=== PATIENT | female | born 1975 | race Caucasian/White ===

== ENCOUNTER → 2017-10-09 11:40 | Outpatient (CLI) | payer OTHER, SELFPAY ==
[2017-10-09 13:43] LABS: AST(SGOT) 24 U/L (15-37); Alanine Aminotransfer ALT/SGPT 21 U/L (13-56); Albumin, Serum 3.6 g/dL (3.2-5.0); Alkaline Phosphatase 63 U/L (45-117); Anion Gap 8 (5-15); BUN 8 mg/dL (7-18); BUN/Creat Ratio 9.4 RATIO (10-20); Chloride 103 mmol/L (98-107); Creatinine, Serum 0.86 mg/dL (0.55-1.02); EST Glomerular Filtration Rate 78 mL/min (>60); Est Glom Filt Rate - Afr Amer 94 mL/min (>60); Free T3 2.5 pg/mL (2.18-3.98); Globulin 3.7 g/dL (2.2-4.2); Glucose 80 mg/dL (74-106); Potassium 3.7 mmol/L (3.5-5.1); Protein, Total 7.3 g/dL (6.4-8.2); Sodium Level 139 mmol/L (136-145); T4 Free Direct 0.45 ng/dL (0.76-1.46)
== END ==
PROVIDERS: Family Provider Family Medicine; PCP Family Medicine; Visit Provider Internal Medicine Endocrinology, Diabetes & Metabolism
DX: E03.9 Hypothyroidism, unspecified (principal)
CPT/HCPCS: 36415; 80053; 84439; 84443; 84481

== ENCOUNTER → 2017-12-07 11:00 | Outpatient (CLI) | payer OTHER, SELFPAY ==
--- NOTE | 2017-12-07 11:01 | RAD_ITS ---
STUDY: X-RAY - ABDOMEN/PELVIS REASON FOR EXAM: Female, 42 years old. Renal stones TECHNIQUE: Supine views of the abdomen and pelvis were obtained. COMPARISON: CT abdomen and pelvis dated July 26, 2017 FINDINGS: The lung bases are unremarkable. There is an unremarkable bowel gas pattern. There is no demonstrated free abdominal air. There is no demonstrated abnormality of the major organs. The soft tissues are unremarkable. The osseous structures are unremarkable. RAD/Abdomen Single View IMPRESSION: No acute abnormalities are seen in the abdomen or pelvis. No stones are evident over the renal shadows or along the expected course of the ureters. Electronically Signed: Marylou Jo MD at 18:05 EDT Tel Direct: [phone], Service support ,
== END ==
PROVIDERS: Family Provider Family Medicine; PCP Family Medicine; Visit Provider Nurse Practitioner Adult Health
DX: N20.0 Calculus of kidney (principal)
CPT/HCPCS: 74018

== ENCOUNTER → 2018-02-16 12:50 | Outpatient (CLI) | payer OTHER, SELFPAY ==
[2018-02-16 13:48] LABS: T4 Free Direct 0.61 ng/dL (0.76-1.46)
[2018-02-16 13:49] LABS: Free T3 4.2 pg/mL (2.18-3.98)
== END ==
PROVIDERS: Family Provider Family Medicine; PCP Family Medicine; Visit Provider Nurse Practitioner
DX: E03.9 Hypothyroidism, unspecified (principal)
CPT/HCPCS: 36415; 84439; 84443; 84481

== ENCOUNTER → 2018-03-13 16:53 | Outpatient (CLI) | payer OTHER, SELFPAY ==
--- NOTE | 2018-03-13 16:58 | RAD_ITS ---
STUDY: X-RAY - CERVICAL SPINE REASON FOR EXAM: Female, 42 years old. Neck pain. Recent cervical spine surgery.. TECHNIQUE: 5 view(s) of the cervical spine were obtained. COMPARISON: None FINDINGS: Normal anterior atlantoaxial articulation. Normal odontoid process. There has been surgical fusion between C5-C7. Satisfactory appearance of the anterior buttress plate and disc spacers. Normal alignment. Normal curvature. Normal neuroforamina bilaterally. Grossly normal soft tissues. RAD/Cerv Spine 4 or 5 Views IMPRESSION: No acute abnormality. Grossly satisfactory postsurgical changes. Electronically Signed: Jh Virk MD at 0:00 EDT , Service support ,
== END ==
PROVIDERS: Family Provider Family Medicine; PCP Family Medicine; Visit Provider Family Medicine
DX: M50.90 Cervical disc disorder, unspecified, unspecified cervical region (principal)
CPT/HCPCS: 72050

== ENCOUNTER → 2018-05-17 17:07 | Outpatient (CLI) | payer OTHER, SELFPAY | PROVIDERS: Family Provider Family Medicine; PCP Family Medicine; Referring Provider Urology; Visit Provider Urology | DX: R10.9 Unspecified abdominal pain (principal) | CPT/HCPCS: 87086; 87088 ==

== ENCOUNTER → 2018-11-29 | Outpatient (CLI) | payer OTHER, SELFPAY ==
--- NOTE | 2018-11-29 16:45 | US_ITS ---
STUDY: RENAL ULTRASOUND - COMPLETE REASON FOR EXAM: Female, 43 years old. Right flank pain and frequent urination TECHNIQUE: Ultrasound evaluation of the kidneys was performed with real-time and static lewis-scale imaging. COMPARISON: October 06, 2016 FINDINGS: RIGHT KIDNEY: Normal location of the right kidney, which is atrophic The right kidney measures 9 x 5.5 x 3.1 cm. There is a thin cortex of the right kidney. The renal cortex measures 0.8 cm. There is no right renal mass or cyst. There are no right renal calculi. There is no right hydronephrosis. DISTAL RIGHT URETER: There is non-visualization of the distal right ureter. There is no demonstrated right ureterovesical junction calculus. There is a visualized right ureteral jet. LEFT KIDNEY: Normal location of the left kidney, which is normal in size. The left kidney measures 10.2 x 5.2 x 5.3 cm. There is a normal cortex of the left kidney. The renal cortex measures 1.8 cm. There is a cyst measuring 1.8 x 1.5 x 1.5 cm. There is a nonobstructing calculus measuring 4 x 4 mm There is no left hydronephrosis. DISTAL LEFT URETER: There is non-visualization of the distal left ureter. There is no demonstrated left ureterovesical junction calculus. There is a visualized left ureteral jet. BLADDER: The distended urinary bladder has a volume of 29.84 ml. There is a normal wall thickness of the distended urinary bladder. There is no demonstrated mass within the urinary bladder. There are no demonstrated bladder calculi. US/Kidney and Bladder IMPRESSION: No evidence for renal obstruction Small cyst in the left kidney. Tiny nonobstructing left renal calculus. Electronically Signed: Beto Harry MD at 21:29 EDT , Service support ,
== END | disposition home or self-care (01) ==
LOC: US 16:44
PROVIDERS: Family Provider Family Medicine; PCP Family Medicine; Referring Provider Nurse Practitioner Adult Health; Visit Provider Nurse Practitioner Adult Health
DX: R10.9 Unspecified abdominal pain (principal); R31.29 Other microscopic hematuria
CPT/HCPCS: 76770

== ENCOUNTER → 2018-12-12 16:40 | Outpatient (CLI) | payer OTHER, SELFPAY ==
[2018-12-12 17:22] LABS: Hematocrit 40.9 % (37-47); Mean Corp Hgb Conc 34.2 g/gl (32-36); Mean Corpuscular Volume 87.6 fL (81-99); Mean Platelet Vol. 11.5 fl (6.2-12.0); Platelet Count 160 K/mm3 (150-450); RBC Distribution Width CV 12.5 % (11.6-14.6); RBC Distribution Width SD 39.2 fl (35.1-43.9); Red Blood Count 4.67 M/mm3 (4.2-5.4); White Blood Count 7.3 K/mm3 (4.4-11.0)
[2018-12-12 17:24] LABS: Scan Indicated on CBC? Y/N NO
[2018-12-12 17:59] LABS: Albumin, Serum 3.6 g/dL (3.2-5.0); BUN 8 mg/dL (7-18); BUN/Creat Ratio 9.1 RATIO (10-20); Calcium,Total 8.7 mg/dL (8.5-10.1); Chloride 109 mmol/L (98-107); Creatinine, Serum 0.88 mg/dL (0.55-1.02); EST Glomerular Filtration Rate 75 mL/min (>60); Est Glom Filt Rate - Afr Amer 90 mL/min (>60); Glucose 99 mg/dL (74-106); Magnesium 1.9 mg/dL (1.6-2.6); Potassium 3.6 mmol/L (3.5-5.1); Sodium Level 138 mmol/L (136-145)
[2018-12-12 18:11] LABS: PTHIN 38.7 pg/mL (18.4-80.1); Vitamin D,25 Hydroxy 21.5 ng/mL (29.95-100.01)
[2018-12-12 18:12] LABS: Microalbumin,Random Urine 14.9 mg/L (NO RANGE EST.); Microalbumin:Creatinine Ratio 5.7 mg/g CRE (<30 mg/g CRE)
== END ==
PROVIDERS: Family Provider Family Medicine; PCP Family Medicine; Referring Provider Internal Medicine Nephrology; Visit Provider Internal Medicine Nephrology
DX: N17.9 Acute kidney failure, unspecified (principal); D50.9 Iron deficiency anemia, unspecified
CPT/HCPCS: 36415; 80069; 82043; 82306; 82570; 83735; 83970; 85027

== ENCOUNTER → 2019-01-14 06:29 | Outpatient (CLI) | payer OTHER, SELFPAY ==
[2019-01-14 07:41] LABS: Hematocrit 40.7 % (37-47); Hemoglobin 13.9 g/dl (12.0-15.0); Mean Corp Hgb Conc 34.2 g/gl (32-36); Mean Corpuscular Hgb 30.5 pg (27.0-32.0); Mean Corpuscular Volume 89.3 fL (81-99); Mean Platelet Vol. 11.6 fl (6.2-12.0); Platelet Count 153 K/mm3 (150-450); RBC Distribution Width CV 12.8 % (11.6-14.6); RBC Distribution Width SD 41.1 fl (35.1-43.9); Red Blood Count 4.56 M/mm3 (4.2-5.4); White Blood Count 5.9 K/mm3 (4.4-11.0)
[2019-01-14 07:44] LABS: Scan Indicated on CBC? Y/N NO
[2019-01-14 07:53] LABS: Microalbumin,Random Urine 18.1 mg/L (NO RANGE EST.); Microalbumin:Creatinine Ratio 5.1 mg/g CRE (<30 mg/g CRE)
[2019-01-14 07:58] LABS: Albumin, Serum 3.4 g/dL (3.2-5.0); BUN 14 mg/dL (7-18); BUN/Creat Ratio 16.9 RATIO (10-20); Calcium,Total 8.5 mg/dL (8.5-10.1); Chloride 109 mmol/L (98-107); Creatinine, Serum 0.83 mg/dL (0.55-1.02); EST Glomerular Filtration Rate 80 mL/min (>60); Est Glom Filt Rate - Afr Amer 97 mL/min (>60); Glucose 92 mg/dL (74-106); Phosphorus 3.1 mg/dL (2.5-4.9); Potassium 3.8 mmol/L (3.5-5.1); Sodium Level 143 mmol/L (136-145)
[2019-01-14 09:31] LABS: Vitamin D,25 Hydroxy 34.3 ng/mL (29.95-100.01)
[2019-01-14 09:50] LABS: PTHIN 56.3 pg/mL (18.4-80.1)
== END ==
PROVIDERS: Family Provider Family Medicine; PCP Family Medicine; Referring Provider Internal Medicine Nephrology; Visit Provider Internal Medicine Nephrology
DX: N17.9 Acute kidney failure, unspecified (principal); D50.9 Iron deficiency anemia, unspecified
CPT/HCPCS: 36415; 80069; 82043; 82306; 82570; 83735; 83970; 85027

== ENCOUNTER → 2019-02-26 16:52 | Outpatient (CLI) | payer OTHER, SELFPAY ==
[2019-02-26 18:11] LABS: T4 Free Direct 1.11 ng/dL (0.76-1.46); Thyroid Stim Hormone (TSH) 4.42 uIU/mL (0.358-3.74)
== END ==
PROVIDERS: Family Provider Family Medicine; PCP Family Medicine; Visit Provider Family Medicine
DX: E03.9 Hypothyroidism, unspecified (principal)
CPT/HCPCS: 36415; 84439; 84443

== ENCOUNTER → 2019-03-12 17:55 | Outpatient (CLI) | payer OTHER, SELFPAY ==
[2019-03-12 19:30] LABS: M R Staph aureus DNA By PCR Negative (Negative); Probe Check PASS; Specimen Processing Control PASS; Staph aureus DNA By PCR NEGATIVE (Negative)
== END ==
PROVIDERS: Family Provider Family Medicine; PCP Family Medicine; Referring Provider Podiatrist; Visit Provider Podiatrist
DX: L60.9 Nail disorder, unspecified (principal)
CPT/HCPCS: 87070; 87075; 87077; 87186; 87205; 87640

== ENCOUNTER → 2019-04-19 16:22 | Outpatient (CLI) | payer OTHER, SELFPAY ==
[2019-04-19 17:36] LABS: Thyroid Stim Hormone (TSH) 0.41 uIU/mL (0.358-3.74)
== END ==
LOC: LAB.FUTURE 10-22 00:31 → BFHLAB 04-08 08:22
PROVIDERS: Family Provider Family Medicine; PCP Family Medicine; Visit Provider Family Medicine
DX: E03.9 Hypothyroidism, unspecified (principal)
CPT/HCPCS: 36415; 84443

== ENCOUNTER → 2019-05-27 12:06 | Outpatient (CLI) | payer OTHER, SELFPAY ==
--- NOTE | 2019-05-27 11:45 | CYSPIN_PTH ---
PATIENT: PATRIC ROTH LOC: CT U#:[id number] AGE/SX: 50/F ROOM: RE05/27/[address]: MISSY Craft : 1975 BED: DIS: SPEC #: [id number] RECD: 05/27/19 17:37 STATUS: ZOHAIB RESteve #: [id number] MORGAN: 05/27/19 11:[address]: Riya Yao NP DEPT: CYTOLOGY RECD BY: Mauricio Brown ENTERED: 05/28/19 09:49 SP TYPE: CYSPIN FL OTHR DR: Dr. Phil Chu MD Tissues: Urine Procedures: Pap Stain (control) Special Stain Group II Cytospin Fluid HEADER OPERATION: Not noted PRE-OP DIAGNOSIS: Hematuria TISSUE SUBMITTED: Urine for cytology DIAGNOSIS CYTOLOGY Urine for cytology (cytospin): Negative for malignant cells. See comment. HENRY:roseline 05/29/19 COMMENT The specimen predominantly consists of squamous epithelial cells. Numerous organisms consistent with bacteria are also present. Clinical correlation and appropriate follow up are necessary. CYTOLOGY STUDY Slides are reviewed. CYTOLOGY GROSS Received is 20 ml of gold cloudy fluid labeled with the patient's name and and designated per the requisition as urine. Submitted for cytology preparation. / roseline 05/28/19 TC:5 [facility]: [id number]
--- NOTE | 2019-05-27 12:11 | CT_ITS ---
STUDY: CT ABDOMEN AND PELVIS WITHOUT CONTRAST REASON FOR EXAM: Female, 43 years old. 2 day history of gross hematuria and right flank pain. RADIATION DOSAGE (If Supplied By Facility): CTDIvol = ( 8.99 ) mGy, DLP = ( 396.11 ) mGycm TECHNIQUE: Transaxial images were obtained from the dome of the diaphragm to the symphysis pubis without oral contrast, and without intravenous contrast. Sagittal and coronal images were reconstructed. Individualized dose optimization techniques were used for this CT. COMPARISON: Comparison is made with prior study dated July 26, 2017. FINDINGS: The visualized lung bases are unremarkable. The visualized portions of the heart are within normal limits. Normal liver. Normal gallbladder and extrahepatic biliary system. Normal spleen. Normal pancreas. Normal bilateral adrenal glands. Normal right kidney. Stable 1.4 cm cyst in the anterior midportion of the left kidney. There is a small hiatal hernia. Normal small intestine. Normal colon. There is non-visualization of the appendix. Normal abdominal aorta. Normal inferior vena cava. Normal retroperitoneum. Normal urinary bladder. There is absence of the uterus consistent with a prior hysterectomy. Normal abdominal wall. Stable degenerative changes at the L5-S1 level. CT/Abdomen/Pelvis without Cont IMPRESSION: Status post hysterectomy. Stable left renal cyst. Electronically Signed: Gray Horn, at 13:21 EDT , Service support ,
[2019-05-27 17:56] LABS: Cytology, Body Fluid / CSF SEE PATHOLOGY REPORT
== END ==
PROVIDERS: Family Provider Family Medicine; PCP Family Medicine; Referring Provider Nurse Practitioner Adult Health; Visit Provider Nurse Practitioner Adult Health
DX: R31.0 Gross hematuria (principal); R10.9 Unspecified abdominal pain; N20.0 Calculus of kidney
CPT/HCPCS: 74176; 87086; 87088; 88108; 88313

== ENCOUNTER → 2019-06-12 15:47 | Outpatient (CLI) | payer OTHER, SELFPAY ==
--- NOTE | 2019-06-12 15:51 | CT_ITS ---
STUDY: CT ABDOMEN AND PELVIS WITH AND WITHOUT CONTRAST REASON FOR EXAM: Female, 44 years old. Hematuria and flank pain which has now resolved. RADIATION DOSAGE (If Supplied By Facility): CTDIvol = ( ) mGy, DLP = ( ) mGycm TECHNIQUE: Transaxial images were obtained from the dome of the diaphragm to the symphysis pubis without oral contrast. IV Isovue 370 100mL was administered. Sagittal and coronal images were reconstructed. Individualized dose optimization techniques were used for this CT. COMPARISON: May 27, 2019. FINDINGS: The visualized lung bases are unremarkable. The visualized portions of the heart are within normal limits. Normal liver. Normal gallbladder and extrahepatic biliary system. Normal spleen. Normal pancreas. Normal bilateral adrenal glands. Normal right kidney. Right ureter. Stable cyst lower pole in otherwise normal left kidney. Normal left ureter. Normal visualized stomach. Normal small intestine. The cecum lies in the posterior cul-de-sac. The colon is otherwise unremarkable. The appendix is not visualized. Normal abdominal aorta. Normal inferior vena cava. Normal retroperitoneum. Normal urinary bladder. Without prominence of the vaginal cuff. No pelvic lymphadenopathy or mass. No free air is seen within the peritoneal cavity. There is minimal free fluid in the posterior cul-de-sac. Umbilical hernia of omental fat. There are diffuse degenerative changes of the visualized lumbar spine. CT/CT Abd/Pelvis W/WO Contrast IMPRESSION: 1. Minimal free fluid in the posterior cul-de-sac. 2. No other major interval change when compared to the previous study. Electronically Signed: Jose Miguel Martinez DO at 19:57 EDT Tel [phone], Service support ,
== END ==
PROVIDERS: Family Provider Family Medicine; PCP Family Medicine; Referring Provider Urology; Visit Provider Urology
DX: R31.9 Hematuria, unspecified (principal); R10.9 Unspecified abdominal pain
CPT/HCPCS: 74178; Q9967

== ENCOUNTER → 2019-07-22 07:25 | Outpatient (CLI) | payer OTHER, SELFPAY ==
[2019-07-22 08:35] LABS: 24 Hour Urine Protein 68.8 mg/24HR (<150 MG/24HR); 24HR. UA Prot. Total Volume 850 mL; Urine Protein (24 Hour) 8.1 mg/dL (<11.9)
[2019-07-22 08:45] LABS: Hematocrit 40.7 % (37-47); Hemoglobin 14.2 g/dL (12.0-15.0); Mean Corp Hgb Conc 34.9 g/dL (32-36); Mean Corpuscular Hgb 30.9 pg (27.0-32.0); Mean Corpuscular Volume 88.5 fL (81-99); Platelet Count 165 K/mm3 (150-450); RBC Distribution Width CV 12.1 % (11.6-14.6)
[2019-07-22 09:06] LABS: Albumin, Serum 3.5 g/dL (3.2-5.0); BUN 11 mg/dL (7-18); BUN/Creat Ratio 11.5 RATIO (10-20); Calcium,Total 8.9 mg/dL (8.5-10.1); Chloride 110 mmol/L (98-107); Creatinine, Serum 0.95 mg/dL (0.55-1.02); EST Glomerular Filtration Rate 68 mL/min (>60); Est Glom Filt Rate - Afr Amer 82 mL/min (>60); Glucose 94 mg/dL (74-106); Phosphorus 2.8 mg/dL (2.5-4.9); Potassium 3.8 mmol/L (3.5-5.1); Sodium Level 141 mmol/L (136-145)
[2019-07-22 09:27] LABS: Creat.Clear Total Volume 850 mL; Creatinine Clearance 102 ml/min (100-200); EST Glomerular Filtration Rate 68 mL/min (>60); Est Glom Filt Rate - Afr Amer 83 mL/min (>60)
[2019-07-22 09:37] LABS: Vitamin D,25 Hydroxy 31.3 ng/mL (29.95-100.01)
== END ==
PROVIDERS: Family Provider Family Medicine; PCP Family Medicine; Referring Provider Internal Medicine Nephrology; Visit Provider Internal Medicine Nephrology
DX: N20.0 Calculus of kidney (principal); R31.9 Hematuria, unspecified; E55.9 Vitamin D deficiency, unspecified
CPT/HCPCS: 36415; 80069; 81050; 82306; 82575; 83970; 84156; 85027

== ENCOUNTER → 2019-10-17 15:51 | Outpatient (CLI) | payer OTHER, SELFPAY | PROVIDERS: PCP Family Medicine; Visit Provider Family Medicine | DX: R31.29 Other microscopic hematuria (principal) | CPT/HCPCS: 87086; 87088 ==

== ENCOUNTER → 2020-02-21 17:42 | Outpatient (CLI) | payer OTHER, SELFPAY | PROVIDERS: PCP Family Medicine; Visit Provider Family Medicine | DX: Z20.828 Contact with and (suspected) exposure to other viral communicable diseases (principal) | CPT/HCPCS: 87635; G2023; U0003 ==

== ENCOUNTER → 2020-04-13 15:17 | Outpatient (CLI) | payer OTHER, SELFPAY ==
[2020-04-13 17:40] LABS: T4 Free Direct 1.42 ng/dL (0.76-1.46); Thyroid Stim Hormone (TSH) 0.14 uIU/mL (0.358-3.74)
== END ==
PROVIDERS: PCP Family Medicine; Visit Provider Family Medicine
DX: E03.9 Hypothyroidism, unspecified (principal)
CPT/HCPCS: 36415; 84439; 84443

== ENCOUNTER → 2020-06-01 14:48 | Outpatient (CLI) | payer OTHER, SELFPAY ==
[2020-06-01 15:59] LABS: Anion Gap 5 (5-15); BUN 13 mg/dL (7-18); BUN/Creat Ratio 12.7 RATIO (10-20); Calcium,Total 8.8 mg/dL (8.5-10.1); Chloride 109 mmol/L (98-107); Cholesterol 173 mg/dL (200); Creatinine, Serum 1.02 mg/dL (0.55-1.02); EST Glomerular Filtration Rate 63 mL/min (>60); Est Glom Filt Rate - Afr Amer 76 mL/min (>60); Glucose 92 mg/dL (74-106); High Density Lipoprotein 49 mg/dL; Potassium 3.8 mmol/L (3.5-5.1); Sodium Level 142 mmol/L (136-145); T4 Free Direct 1.25 ng/dL (0.76-1.46); Thyroid Stim Hormone (TSH) 0.54 uIU/mL (0.358-3.74); Triglycerides 123 mg/dL; Very Low Density Lipoprotein 25 mg/dL (5-40)
== END ==
LOC: BFHLAB 12-03 00:16
PROVIDERS: PCP Family Medicine; Visit Provider Family Medicine
DX: E03.9 Hypothyroidism, unspecified (principal)
CPT/HCPCS: 36415; 80048; 80061; 84439; 84443

== ENCOUNTER → 2020-10-12 | Outpatient (CLI) | payer OTHER, SELFPAY ==
[2020-10-12 17:39] LABS: Anion Gap 5 (5-15); BUN 12 mg/dL (7-18); BUN/Creat Ratio 14.4 RATIO (10-20); Calcium,Total 8.5 mg/dL (8.5-10.1); Chloride 106 mmol/L (98-107); Creatinine, Serum 0.83 mg/dL (0.55-1.02); EST Glomerular Filtration Rate 79 mL/min (>60); Est Glom Filt Rate - Afr Amer 95 mL/min (>60); Glucose 89 mg/dL (74-106); Potassium 3.7 mmol/L (3.5-5.1); Sodium Level 140 mmol/L (136-145); Thyroid Stim Hormone (TSH) 0.51 uIU/mL (0.358-3.74)
== END | disposition home or self-care (01) ==
LOC: BFHLAB 16:18
PROVIDERS: PCP Family Medicine; Visit Provider Family Medicine
DX: E03.9 Hypothyroidism, unspecified (principal); R35.8 Other polyuria
CPT/HCPCS: 36415; 80048; 84443

== ENCOUNTER → 2021-04-01 17:47 | Outpatient (CLI) | payer OTHER, SELFPAY | PROVIDERS: PCP Family Medicine; Visit Provider Family Medicine | DX: Z20.828 Contact with and (suspected) exposure to other viral communicable diseases (principal) | CPT/HCPCS: 87635; U0005; U0003 ==

== ENCOUNTER 2021-07-05 09:45 | Outpatient (RCR) | payer OTHER, SELFPAY ==
--- NOTE | 2021-05-04 10:12 | MASS.EVAL_ITS ---
Massage Therapy Evaluation: Initial Evaluation Date: 05/04/2021 SUBJECTIVE: Marlene is a 45 year old female who was referred to the [facility] for a massotherapy evaluation by Dr. Gonzales with the diagnosis of migraines. She presents today with the symptoms of pain, stiffness and tension in the neck, head, and mid back. Marlene reports having a past medical history of chronic neck pain that causes migraines. Marlene reports that each month she has a different amount of migraines. She reports of trying different types of medication to decrease the amount of migraines. OBJECTIVE: Upon observation Marlene has poor posture with her head and shoulders forward from the neutral position in sitting and standing. After examination and palpation, I found Marlene to have high muscle tension with tenderness and myofascial restrictions in her sub occipitals, levator scapulae, trapezius, rhomboids, and scalenes. The first treatment consisted of a one hour massage to her upper body with myofascial release, muscle stripping, trigger point compression techniques, and cervical manual traction. ASSESSMENT: I feel that Marlene is a good candidate for massotherapy at this time. She had a favorable response to the first treatment with reduction in her muscle aches, pain, and tension. She also had improvement in her cervical flexibility and low back flexibility. PLAN: The plan of care was reviewed with the patient. The patient is to be seen on an as needed basis with the recommendation of once every month for a one hour treatment.
--- NOTE | 2021-08-03 12:48 | MASS.DISCH ---
Massage Therapy Discharge Summary: 08/03/21 Marlene was seen for a massotherapy evaluation on 05/04/21, with a diagnosis of migraines. The patient was treated with two sessions of massage, the patient stated that it did give her moderate release. At this time I am discharging the patient from our care at [facility] facility.
== END 2021-07-05 19:00 | disposition home or self-care (01) ==
LOC: MASS 09:45
PROVIDERS: PCP Family Medicine; Visit Provider Nurse Practitioner Family
DX: G54.2 Cervical root disorders, not elsewhere classified (principal); G43.909 Migraine, unspecified, not intractable, without status migrainosus
CPT/HCPCS: 97124

== ENCOUNTER → 2021-07-06 16:40 | Outpatient (CLI) | payer OTHER, SELFPAY ==
[2021-07-06 17:46] LABS: NATERA MAILED SPECIMEN
== END ==
PROVIDERS: PCP Family Medicine; Visit Provider Obstetrics & Gynecology
DX: Z13.9 Encounter for screening, unspecified (principal); Z80.0 Family history of malignant neoplasm of digestive organs
CPT/HCPCS: 36415

== ENCOUNTER → 2021-07-21 07:15 | Outpatient (CLI) | payer OTHER, SELFPAY ==
--- NOTE | 2021-07-21 07:18 | CT_ITS ---
STUDY: CT ABDOMEN AND PELVIS WITHOUT CONTRAST REASON FOR EXAM: Female, 46 years old. Abdominal PAIN RADIATION DOSAGE (If Supplied By Facility): CTDIvol = ( 6.42 ) mGy, DLP = ( 299.69 ) mGycm TECHNIQUE: Transaxial images were obtained from the dome of the diaphragm to the symphysis pubis without oral contrast, and without intravenous contrast. Sagittal and coronal images were reconstructed. Individualized dose optimization techniques were used for this CT. COMPARISON: 05/27/2019 FINDINGS: The visualized lung bases are unremarkable. The visualized portions of the heart are within normal limits. The lack of intravenous contrast limits evaluation of solid visceral organs. Normal liver. Normal gallbladder and extrahepatic biliary system. Normal spleen. Normal pancreas. Normal bilateral adrenal glands. Normal right kidney. There is a left renal cyst. Normal visualized stomach. Normal small intestine. Normal colon. There is non-visualization of the appendix. Normal abdominal aorta. Normal inferior vena cava. Normal retroperitoneum. Normal urinary bladder. There is a small umbilical hernia containing fat. There are diffuse degenerative changes of the visualized lumbar spine. CT/Abdomen/Pelvis without Cont IMPRESSION: No acute intra-abdominal process. Electronically Signed: Brii Alvarado MD at 12:05 EST Tel , Service support ,
== END ==
PROVIDERS: PCP Family Medicine; Referring Provider Urology; Visit Provider Urology
DX: R31.21 Asymptomatic microscopic hematuria (principal); R10.84 Generalized abdominal pain
CPT/HCPCS: 74176

== ENCOUNTER 2021-10-11 13:00 | Outpatient (RCR) | payer OTHER, SELFPAY | END 2021-10-11 23:59 | LOC: NS 13:00 | PROVIDERS: PCP Family Medicine; Referring Provider Family Medicine; Visit Provider Family Medicine | DX: Z71.3 Dietary counseling and surveillance (principal); E66.3 Overweight; Z68.27 Body mass index [BMI] 27.0-27.9, adult | CPT/HCPCS: 97802; 97803 ==

== ENCOUNTER 2021-10-25 09:04 | Outpatient (RCR) | payer OTHER, SELFPAY | END 2021-11-11 23:59 | LOC: NS 09:04 | PROVIDERS: PCP Family Medicine; Referring Provider Family Medicine; Visit Provider Family Medicine | DX: Z71.3 Dietary counseling and surveillance (principal); E66.3 Overweight; Z68.27 Body mass index [BMI] 27.0-27.9, adult | CPT/HCPCS: 97803 ==

== ENCOUNTER 2021-11-04 12:28 | Outpatient (CLI) | payer OTHER, SELFPAY ==
--- NOTE | 2021-11-04 12:30 | RAD_ITS ---
STUDY: [id number]/PELVIS--2 VIEWS OF 1239 HOURS ON 11/04/2021 REASON FOR EXAM: 46-year-old female. Evaluate for possible renal calculus. TECHNIQUE: 2 AP upright views of the abdomen and pelvis were obtained. COMPARISON: None. FINDINGS: There is no abdominal organomegaly. There is no abnormal calcifications or collections of air. There is no evidence of calcification or calculi in the regions of the kidneys, ureters, or bladder. There is mild constipation. The osseous structures are normal. The bases of the lungs have a normal appearance. RAD/Abdomen Single View IMPRESSION: 1. No abnormal calcification or calculi in the region of the kidneys, ureters, bladder. 2. No abnormal intra-abdominal calcifications or collections of air. 3. No organomegaly. 4. Mild constipation. 5. Normal osseous structures. Electronically Signed: Shreyas Laboy MD at 22:19 EDT ,
== END 2021-11-04 23:59 | disposition home or self-care (01) ==
LOC: RAD 12:30
PROVIDERS: PCP Family Medicine; Referring Provider Urology; Visit Provider Urology
DX: N20.0 Calculus of kidney (principal)
CPT/HCPCS: 74018

== ENCOUNTER 2021-11-22 10:34 | Outpatient (CLI) | payer OTHER, SELFPAY ==
--- NOTE | 2021-11-22 10:35 | BI_ITS ---
MAMMOGRAPHY - BILATERAL SCREENING REASON FOR EXAM: Female, 46 years old. Routine annual screening examination. PERTINENT HISTORY: Non-contributory. TECHNIQUE: Digital bilateral breast lion (3D mammographic acquisition) in the CC and MLO projections. 2-D mediolateral oblique (MLO) and craniocaudad (CC) views of both breasts were obtained. CAD: Full Field Digital Mammography with Computer Added Detection was performed. COMPARISON: None. Baseline examination. FINDINGS: Breast Composition: The breasts are extremely dense, which lowers the sensitivity of mammography. There are no dominant masses or suspicious calcifications. No other significant abnormalities are identified. BI/SCRN MAMM (CAD)W/LION BILAT IMPRESSION: Negative screening mammogram. Yearly followup mammogram recommended. (A) ASSESSMENT CATEGORY: BIRADS Category 1: Negative. A letter regarding these results will be sent to the patient by the facility within 30 days. Approximately 10% of breast cancers are not detected by mammography. A normal mammogram should not delay biopsy of a clinically suspicious abnormality. [id number] Electronically Signed: Gray Horn MD at 12:34 EDT ,
== END 2021-11-22 23:59 | disposition home or self-care (01) ==
LOC: OPBI 10:34
PROVIDERS: PCP Family Medicine; Visit Provider Obstetrics & Gynecology
DX: Z12.31 Encounter for screening mammogram for malignant neoplasm of breast (principal)
CPT/HCPCS: 77063; 77067

== ENCOUNTER 2021-12-06 14:37 | Outpatient (RCR) | payer OTHER, SELFPAY | END 2021-12-11 23:59 | LOC: NS 14:37 | PROVIDERS: PCP Family Medicine; Referring Provider Family Medicine; Visit Provider Family Medicine | DX: Z71.3 Dietary counseling and surveillance (principal); E66.3 Overweight; Z68.27 Body mass index [BMI] 27.0-27.9, adult | CPT/HCPCS: 97803 ==

== ENCOUNTER 2021-12-27 07:56 | Outpatient (RCR) | payer OTHER, SELFPAY | END 2022-01-11 23:59 | LOC: NS 07:56 | PROVIDERS: PCP Family Medicine; Referring Provider Family Medicine; Visit Provider Family Medicine | DX: Z71.3 Dietary counseling and surveillance (principal); E66.3 Overweight; Z68.27 Body mass index [BMI] 27.0-27.9, adult | CPT/HCPCS: 97803 ==

== ENCOUNTER 2022-02-01 09:47 | Outpatient (RCR) | payer OTHER, SELFPAY | END 2022-02-10 23:59 | LOC: NS 09:47 | PROVIDERS: PCP Family Medicine; Referring Provider Family Medicine; Visit Provider Family Medicine | DX: Z71.3 Dietary counseling and surveillance (principal); E66.3 Overweight; Z68.27 Body mass index [BMI] 27.0-27.9, adult | CPT/HCPCS: 97803 ==

== ENCOUNTER → 2022-05-13 | Outpatient (CLI) | payer OTHER, SELFPAY ==
[2022-05-13 17:02] LABS: Hematocrit 40.7 % (37-47); Mean Corp Hgb Conc 34.4 g/dL (32-36); Mean Corpuscular Hgb 30.4 pg (27.0-32.0); Mean Corpuscular Volume 88.5 fL (81-99); Platelet Count 212 K/mm3 (150-450); RBC Distribution Width CV 12.3 % (11.6-14.6); RBC Distribution Width SD 39.7 fl (35.1-43.9); White Blood Count 8.4 K/mm3 (4.4-11.0)
[2022-05-13 17:21] LABS: PTHIN 54.1 pg/mL (18.4-80.1)
[2022-05-13 17:27] LABS: Albumin, Serum 3.4 g/dL (3.2-5.0); BUN 14 mg/dL (7-18); BUN/Creat Ratio 16.3 RATIO (10-20); Calcium,Total 9.3 mg/dL (8.5-10.1); Chloride 108 mmol/L (98-107); Creatinine, Serum 0.86 mg/dL (0.55-1.02); EST Glomerular Filtration Rate 76 mL/min (>60); Est Glom Filt Rate - Afr Amer 92 mL/min (>60); Glucose 88 mg/dL (74-106); Phosphorus 3.2 mg/dL (2.5-4.9); Potassium 3.9 mmol/L (3.5-5.1); Sodium Level 142 mmol/L (136-145)
[2022-05-13 17:30] LABS: Vitamin D,25 Hydroxy 34.3 ng/mL
== END | disposition home or self-care (01) ==
LOC: LAB 16:09
PROVIDERS: PCP Family Medicine; Visit Provider Internal Medicine Nephrology
DX: E55.9 Vitamin D deficiency, unspecified (principal); N20.0 Calculus of kidney; R31.9 Hematuria, unspecified
CPT/HCPCS: 36415; 80069; 82306; 83735; 83970; 85027

== ENCOUNTER → 2022-11-30 | Outpatient (CLI) | payer BC, SELFPAY ==
[2022-11-30 08:16] LABS: Cholesterol 200 mg/dL (200); Estradiol 87.2 pg/mL; Follicle Stimulating Hormone 4.2 mIU/mL; High Density Lipoprotein 39 mg/dL; T4 Free Direct 1.18 ng/dL (0.76-1.46); Thyroid Stim Hormone (TSH) 1.44 uIU/mL (0.358-3.74); Triglycerides 116 mg/dL; Very Low Density Lipoprotein 23 mg/dL (5-40)
== END | disposition home or self-care (01) ==
LOC: LAB 06:57
PROVIDERS: PCP Family Medicine; Referring Provider Obstetrics & Gynecology; Visit Provider Obstetrics & Gynecology
DX: N95.1 Menopausal and female climacteric states (principal)
CPT/HCPCS: 36415; 80061; 82670; 83001; 84439; 84443

== ENCOUNTER → 2022-12-22 | Outpatient (CLI) | payer BC, SELFPAY ==
--- NOTE | 2022-12-22 12:05 | EKG12_ITS ---
Test Reason : HTN Blood Pressure : / mmHG Vent. Rate : 062 BPM Atrial Rate : 062 BPM P-R Int : 130 ms QRS Dur : 070 ms QT Int : 374 ms P-R-T Axes : 050 -10 011 degrees QTc Int : 379 ms Normal sinus rhythm Normal ECG Confirmed by DEEPAK EVANS, BAKARI ([id number]), staff editor MY CONTI ([id number]) on 12/23/2022 7:58:18 AM Referred By: Velma Wayne Confirmed By:BAKARI SOTELO MD
== END | disposition home or self-care (01) ==
LOC: PSN 12:05
PROVIDERS: PCP Family Medicine; Referring Provider Obstetrics & Gynecology; Visit Provider Obstetrics & Gynecology
DX: I10 Essential (primary) hypertension (principal)
CPT/HCPCS: 93005

== ENCOUNTER → 2023-06-19 | Outpatient (CLI) | payer BC, SELFPAY ==
[2023-06-19 09:09] LABS: Hemoglobin A1c 4.9 % (3.8-5.6)
[2023-06-19 09:28] LABS: Estradiol 14.6 pg/mL; Thyroid Stim Hormone (TSH) 2.76 uIU/mL (0.358-3.74)
[2023-06-19 10:24] LABS: Insulin 9.2 mU/L (2.6-37.6); Progesterone Level 0.62 ng/mL (See Comment); Vitamin D,25 Hydroxy 61.3 ng/mL
[2023-06-20 04:07] LABS: DHEA Sulfate 56.4 ug/dL (41.2-243.7); Thyroid Peroxidase AB 107 IU/mL (0-34)
== END | disposition home or self-care (01) ==
PROVIDERS: PCP Family Medicine
DX: Z00.00 Encounter for general adult medical examination without abnormal findings (principal); R89.1 Abnormal level of hormones in specimens from other organs, systems and tissues
CPT/HCPCS: 36415; 82306; 82533; 82627; 82670; 83036; 83525; 84144; 84403; 84439; 84443; 84481; 86376; 82626

== ENCOUNTER 2023-10-02 01:21 | Emergency (ER) | payer BC, SELFPAY ==
[2023-10-02 01:21] VITALS: BP 147/100; PULSE 77; RESP 18; TEMP 36.6; O2SAT 99; BMI 26.6
--- NOTE | 2023-10-02 01:44 | EDS_ITS ---
HPI HPI - GI History of Present Illness Chief Complaint: Nausea/Vomiting Informant: patient Abdominal Pain/Flank Pain Onset: Today Context: Sudden Onset Timing: Continuous Quality: - ( Raw ) Location: Diffuse Worsened by: Nothing Relieved by: Nothing Nausea/Vomiting/Emesis GI Symptom: Positive for Nausea and Vomiting Onset: Today Quality: Positive for Nonbilious; Negative for Blood streaks, Coffee ground or Hematemesis Diarrhea/Melena/Hematochezia GI Symptom: Negative for Diarrhea, Melena or Hematochezia Associated Symptoms Associated Symptoms: Negative for Dysuria, Frequency or Hematuria Narrative Narrative: Patient presents with abdominal pain, nausea, and vomiting that began tonight. Patient states she took a shot of Ozempic tonight. Patient states that her nausea and vomiting began soon after that. Patient describes her pain is raw . Patient states it feels like her stomach is trying to eat itself. Patient states her pain is diffuse across her abdomen. Patient states nothing makes it better nothing makes it worse. Patient denies any hematemesis or coffee-ground emesis. Patient denies any diarrhea, melena, or hematochezia. Patient admits to some urinary frequency but denies any dysuria or hematuria. Patient denies any abnormal vaginal bleeding or discharge. [facility] Medical History Anxiety Chronic headaches Family history of colon cancer in father Heart murmur IBS (irritable bowel syndrome) Kidney stones Thyroid disease Home Medications levothyroxine 150 mcg tablet (Synthroid) 150 mcg PO .COMPLEX pt may have dose change after monitoring labs 12/04/20 [History Last Taken Unknown] losartan 50 mg tablet 50 mg PO DAILY 10/05/22 [History Last Taken Unknown] hydroxyzine pamoate 25 mg capsule (Vistaril) 25 mg PO Q6H PRN anxiety #120 caps 01/19/23 [Rx Last Taken Unknown] naratriptan 2.5 mg tablet 2.5 mg PO .COMPLEX migraine headache #9 tabs 01/30/23 [Rx Last Taken Unknown] ondansetron HCl 4 mg tablet 4 mg PO TID PRN nausea and vomiting #30 tabs 01/30/23 [Rx Last Taken Unknown] fremanezumab-vfrm 225 mg/1.5 mL subcutaneous syringe (Ajovy Syringe) 225 mg (1.5 mL) subcut QMONTH #1.5 mL 06/26/23 [Rx Last Taken Unknown] progesterone hrt cream 2 - 4 click topical DAILY 10/02/23 [History Last Taken Unknown] promethazine 25 mg tablet 25 mg PO Q12H PRN nausea 10/02/23 [History Last Taken Unknown] Allergy/AdvReac Type Severity Reaction Status Date / Time acetaminophen [From Percocet] Allergy Intermediate Rash Verified 10/02/23 01:21 adhesive tape Allergy Intermediate Itching Verified 10/02/23 01:21 oxycodone HCl [From Percocet] Allergy Intermediate Rash Verified 10/02/23 01:21 bupropion [From Wellbutrin] AdvReac Severe Elevated BP Verified 10/02/23 01:21 Sulfa (Sulfonamide AdvReac Severe Nausea/Vom/ Verified 10/02/23 01:21 Antibiotics) Diarrhea Family History Unknown Thyroid disorder Kidney stones Father Colon cancer Surgical History ACDF C5-7 anterior cervical discectomy H/O: H/O: hysterectomy Social History Smoking Status: Never smoker second hand exposure: No alcohol intake: never substance use type: does not use additional social history: [employer]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 Constitutional Constitutional ED: Reports chills and subjective; Denies fever(s) Eyes Eyes: Denies blurry vision or change in vision ENT ENT ED: Denies rhinorrhea or sore throat Cardiovascular Cardiovascular: Denies chest pain or palpitations Respiratory/Chest Respiratory/Chest: Denies cough or dyspnea Gastrointestinal Gastrointestinal: Reports abdominal pain, nausea and vomiting; Denies diarrhea or melena Genitourinary Genitourinary ED: Reports urinary frequency; Denies dysuria or hematuria Musculoskeletal Musculoskeletal: Denies back pain or neck pain Integumentary Denies abscess or rash Neurologic Neurologic: Denies headache(s) or weakness Allergic/Immunologic Allergic/Immunologic ED: Denies mouth swelling or urticaria EXAM Physical Exam Const Vital Signs: 10/02/23 01:21 Temperature 97.8 F Temperature Source Temporal Pulse Rate 77 Respiratory Rate 18 Blood Pressure 147/100 H Blood Pressure Mean 115 Pulse Ox 99 Oxygen Delivery Method Room Air Positive well nourished and well developed General Appearance ED: well developed and NAD HEENT Reports moist mucous membranes Neck supple and no JVD Resp normal respiratory effort and clear to auscultation bilaterally Cardio regular rate and regular rhythm GI non-distended Palpation: soft and tender epigastric, LLQ, RLQ, LUQ, RUQ, periumbilical and suprapubic; Negative for guarding or rebound tenderness present Extremity full ROM General Extremety ED: Negative for edema or tenderness General Extremity: Negative for edema Neuro CN's II-XII intact bilaterally, moves all extremities and no sensory deficits noted Sensorium / Orientation: alert and oriented to person Motor Exam: strength 5/5 throughout Psych mental status grossly normal MDM MDM MDM Narrative Medical decision making narrative: Differential diagnosis includes medication side effect, dehydration, pancreatitis, bowel obstruction, perforation, electrolyte abnormality, hyperglycemia, hypoglycemia, urinary tract infection, and gastroenteritis. CBC will be obtained to assess for leukocytosis and anemia. Comprehensive metabolic profile will be obtained to assess for electrolyte abnormality, hepatic function, and renal function. Lipase will be obtained to assess for pancreatitis. Urinalysis will be obtained to assess for urinary tract infection. Lab Data Attestation: I reviewed the patient's lab results. Lab results narrative: CBC was reviewed and was within normal limits. Comprehensive metabolic profile was reviewed and was within normal limits. Lipase was reviewed and was normal. Urinalysis was reviewed. There is no evidence of urinary tract infection or hematuria. Labs: Laboratory Results - last 24 hr 10/02/23 10/02/23 01:56 02:05 WBC 9.3 RBC 4.53 Hgb 13.6 Hct 40.2 MCV 88.7 MCH 30.0 MCHC 33.8 RDW Std Deviation 42.4 RDW Coeff of Azalea 13.0 Plt Count 201 MPV 11.2 Immature Gran % (Auto) 0.300 Neut % (Auto) 69.4 Lymph % (Auto) 20.9 Barry % (Auto) 6.1 Eos % (Auto) 2.7 Baso % (Auto) 0.6 Absolute Neuts (auto) 6.5 Absolute Lymphs (auto) 1.95 Nucleated RBC % 0 Sodium 140 Potassium 3.9 Chloride 110 H Carbon Dioxide 26.0 Anion Gap 4 L BUN 13 Creatinine 1.02 Estim Creat Clear Calc 58.47 Est GFR (MDRD) Af Amer 75 Est GFR (MDRD) Non-Af 62 BUN/Creatinine Ratio 12.7 Glucose 109 H Calcium 9.3 Total Bilirubin 0.50 AST 14 L ALT 15 Alkaline Phosphatase 50 Total Protein 7.0 Albumin 3.5 Globulin 3.5 Albumin/Globulin Ratio 1.0 Lipase 34 Urine Color Yellow Urine Clarity Clear Urine pH 8.0 Ur Specific [place] 1.015 Urine Protein 15 H Urine Glucose (UA) Normal Urine Ketones 15 H Urine Occult Blood Negative Urine Nitrite Negative Urine Bilirubin Negative Urine Urobilinogen Normal Ur Leukocyte Esterase Negative Urine RBC 0 SEEN Urine WBC 0 SEEN Ur Squamous Epith Cells 0-5 SEEN Urine Bacteria 2+ Urine Mucus 0 SEEN Treatment and Re-Evaluation :: Patient was given IV fluids and Zofran. Patient was feeling better on reevaluation. Patient was advised of her findings. Patient was instructed to follow-up with her primary care physician in 5 to 7 days. Patient was instructed return if worse in any way. Patient understood and was agreeable with the plan. All questions were answered. Discharge Plan Triage Chief Complaint: Nausea/Vomiting ED Provider: Roel Herrera Dx/Rx/DC Orders Clinical Impression: Medication side effect, Nausea and vomiting Instructions: ED Vomiting (Adult) Prescriptions: No Action levothyroxine [Synthroid] 150 mcg tablet 150 mcg PO .COMPLEX Rx Instructions: Take 1 tablet by mouth Monday through Monday losartan 50 mg tablet 50 mg PO DAILY naratriptan 2.5 mg tablet 2.5 mg PO .COMPLEX Qty: 9 11RF Rx Instructions: Take 1 tablet orally every 4 hours as needed for headache up to 2 tablets daily. ondansetron HCl 4 mg tablet 4 mg PO TID PRN (Reason: nausea and vomiting) Qty: 30 3RF hydroxyzine pamoate [Vistaril] 25 mg capsule 25 mg PO Q6H PRN (Reason: anxiety) Qty: 120 12RF promethazine 25 mg tablet 25 mg PO Q12H PRN (Reason: nausea) Patient Comments: take 1 tablet 2 times a day by mouth as instructed as needed for nausea progesterone hrt cream 2 - 4 click topical DAILY Rx Instructions: 200mg/gm cream Ajovy Syringe 225 mg/1.5 mL syringe 225 mg subcut QMONTH Qty: 1.5 7RF Primary Care Provider: Crissy Waggoner Referrals: Crissy Waggoner DO [Primary Care Provider] - 5-7 Days Disposition Disposition: Home, Self Care
--- OUTSIDE RECORDS SUMMARY | 2023-10-02 01:52 | XMS RPT_ITS | CCD ---
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 Author Type: Nurse Practitioner Type: Progress Notes Filed: 03/13/2021 10:10 AM Note Text: Subjective HPI Nontoxic-appearing female presents urgent care chief complaint sinus drainage. Duration of symptoms 4 days. Associated symptoms sinus drainage pressure and cough. Patient states cough has been more prominent over the last 2 days. Has been using OTC cough suppressant with no success. Denies any significant discomfort. States children have similar signs and symptoms. Patient states that her cough sounds croupy . Denies any fevers, nausea, vomiting, headache, visual changes, chest pain, shortness of breath change in bowel or bladder habit. Denies any. Pleuritic pain. Denies chance of . Past medical history prescription medication use allergies reviewed. Is not breast-feeding. .Patient presents with: Sinus Problem: sinus pressure, drainage, cough x 4 days PAST MEDICAL HISTORY Diagnosis Date - Anxiety - Esophageal reflux - Headache(784.0) - Hematuria - Iron deficiency anemia, unspecified - Irritable bowel syndrome - Myalgia and myositis, unspecified - Sleep disturbance, unspecified - Unspecified hypothyroidism PAST SURGICAL HISTORY Procedure Laterality Date - DELIVERY ONLY 01/08/2004 , low transverse - COLONOSCOP W/ OR W/O [facility] SPEC 05/11/2011 - COLONOSCOPY 11/22/1999 Karla Mendoza - EGD W/O [facility] SPECIMEN W/BX 05/11/11 and colonoscopy - PAST SURGICAL HISTORY OF [place] teeth ALLERGIES Percocet [Oxycodone-Acetaminophen] and Sulfa (Sulfonamide Antibiotics) MEDICATIONS levothyroxine (LEVOXYL) 150 mcg tablet Take 175 mcg by mouth daily before breakfast. ARMOUR THYROID 90 mg tab AJOVY AUTOINJECTOR 225 mg/1.5 mL auto-injector INJECT 1.5 ML SUBCUTANEOUSLY ONCE A MONTH mupirocin (BACTROBAN) 2 % cream Apply 1 application to affected area three times daily. fluconazole (DIFLUCAN) 100 mg tablet Take 1 tablet by mouth once daily. 1 oral q week X 8 weeks doxepin capsule 10 mg eszopiclone (LUNESTA) 3 mg tab naratriptan (AMERGE) 2.5 mg tablet Melatonin-SR (Klaire/Prothera) 2mg 1-2 by mouth 30 minutes before bed GI-Revive 225 gram Powder (DabKick) Take 2 teaspoons twice daily (1 teaspoon = 1.5 grams L-glut) Ther-Biotic Detoxification Support (Klaire/Prothera) Take 1 capsule by mouth once daily. Glutathione (Active Circle) Use 8 pumps daily (500mg) divided doses through out the day. (2 pumps = 100 mg Glutathione) levothyroxine 150 mcg tablet Take 5 pills weekly prochlorperazine (COMPAZINE) 10 mg ORAL tablet Take 1 tablet by mouth every 6 hours as needed. FOR NAUSEA famotidine (PEPCID) 20 mg ORAL tablet Take 1 tablet by mouth as needed. LORazepam (ATIVAN) 0.5 mg ORAL Tab Take 0.5 mg by mouth three times daily as needed. FAMILY HISTORY Problem Relation Age of Onset - None Mother - Colon Cancer Father - Diabetes Father - Ischemic Heart Disease Maternal Grandmother - Prostate Cancer Maternal Grandfather Social History Tobacco Use - Smoking status: Never Smoker - Smokeless tobacco: Never Used Substance Use Topics - Alcohol use: No - Drug use: No BP 122/74 Pulse 96 Temp 36.8 ?C (98.3 ?F) Resp 16 Wt 66.2 kg (146 lb) LMP 08/16/2014 SpO2 99% BMI 27.59 kg/m? Review of Systems Constitutional: Negative for chills, fever and malaise/fatigue. HENT: Positive for congestion and sinus pain. Negative for ear discharge, ear pain and sore throat. Eyes: Negative for blurred vision, pain, discharge and redness. Respiratory: Positive for cough. Negative for sputum production, shortness of breath and wheezing. Cardiovascular: Negative for chest pain. Gastrointestinal: Negative for abdominal pain, diarrhea, nausea and vomiting. Musculoskeletal: Negative for myalgias. Skin: Negative for itching and rash. Neurological: Negative for dizziness and headaches. Objective Physical Exam Constitutional: General: She is not in acute distress. Appearance: She is not diaphoretic. HENT: Head: Normocephalic. Right Ear: Tympanic membrane, ear canal and external ear normal. Left Ear: Tympanic membrane, ear canal and external ear normal. Nose: Rhinorrhea present. Mouth/Throat: Mouth: Mucous membranes are dry. Pharynx: Oropharynx is clear. No oropharyngeal exudate or posterior oropharyngeal erythema. Eyes: Conjunctiva/sclera: Conjunctivae normal. Pupils: Pupils are equal, round, and reactive to light. Cardiovascular: Rate and Rhythm: Normal rate and regular rhythm. Heart sounds: Normal heart sounds. Pulmonary: Effort: Pulmonary effort is normal. No tachypnea, accessory muscle usage or respiratory distress. Breath sounds: Normal breath sounds. No stridor. Abdominal: Palpations: Abdomen is soft. Tenderness: There is no abdominal tenderness. Musculoskeletal: General: Normal range of motion. Cervical b (more content not included)... [facility] Summary Purpose Family History No Family History Records FoundNo Family History Records Found Advance Directives No Advanced Directives Records FoundNo Advanced Directives Records Found Additional Source Comments INFORMATION SOURCE (unrecogn ized section and content) DATE CREATED AUTHOR AUTHOR'S SRAVAN BANEGAS 09/08/2021 [facility] FOR RECORDS PERTAINING TO PATIENTS WHO ARE OR HAVE BEEN ENROLLED IN A CHEMICAL DEPENDENCY/SUBSTANCEABUSE PROGRAM, SOME INFORMATION MAY BE OMITTED. This clinical summary was aggregated from multiple sources. Caution should be exercised in using it in the provision of clinical care. This summary normalizes information from multiple sources, and as a consequence, information in this document may materially change the coding, format and clinical context of patient data. In addition, data may be omitted in some cases. CLINICAL DECISIONS SHOULD BE BASED ON THE PRIMARY CLINICAL RECORDS. [facility]. provides no warranty or guarantee of the accuracy or completeness of information in this document.
[2023-10-02] MEDS: 0.9% Normal Saline (1000mL) 1,000 ML 1000 ML IV (02:08)
[2023-10-02] MEDS: Ondansetron 4 MG/2 ML Vial IV (02:09)
[2023-10-02 02:11] LABS: Mucous, Urine 0 SEEN /hpf (<or=2+); Red Blood Cells-Urine 0 SEEN /hpf (0-5); White Blood Cells 0 SEEN /hpf (0-5)
[2023-10-02 02:13] LABS: Color, Urine Yellow (Yellow); Glucose, Dipstick Normal (Normal); Ketone-Dipstick 15 mg/dl (Negative); Leukocyte Esterase-Dipstick Negative /ul (Negative); Nitrite-Dipstick Negative (Negative); Occult Blood-Urine Negative /ul (Negative); Protein-Dipstick 15 mg/dl (Negative); Specific Gravity, Urine 1.015 (1.002-1.030); Urine Bilirubin Dipstick Negative (Negative); Urine Clarity Clear (Clear); Urine Urobilinogen Normal (Normal)
[2023-10-02 02:21] LABS: Absolute Lymphocyte Count 1.95 X10^3/uL (0.83-4.51); Absolute Neutrophil Count 6.5 X10^3/uL (2.0-7.7); Basophil# 0.06 X10^3/uL; Basophil% 0.6 % (0-1); Eosinophil# 0.25 X10^3/uL; Eosinophils% 2.7 % (0-5); Hematocrit 40.2 % (37-47); Hemoglobin 13.6 g/dL (12.0-15.0); Lymphocyte # 1.95 X10^3/ul (0.83-4.51); Lymphocyte % 20.9 % (19-41); Mean Corp Hgb Conc 33.8 g/dL (32-36); Mean Corpuscular Volume 88.7 fL (81-99); Mean Platelet Vol. 11.2 fl (6.2-12.0); Monocyte# 0.57 X10^3/uL; Monocyte% 6.1 % (0-10); NRBC Flagged by Analyzer 0 % (0-5); Neutrophil # 6.48 X10^3/uL (2.7-7.7); Neutrophil % 69.4 % (47-70); Platelet Count 201 K/mm3 (150-450); RBC Distribution Width SD 42.4 fl (35.1-43.9); Red Blood Count 4.53 M/mm3 (4.2-5.4); White Blood Count 9.3 K/mm3 (4.4-11.0)
[2023-10-02 02:22] LABS: Bacteria 2+ /hpf (None Seen); Squamous Epithelial Cells - UA 0-5 SEEN /hpf (5-10)
[2023-10-02 02:34] LABS: AST(SGOT) 14 U/L (15-37); Alanine Aminotransfer ALT/SGPT 15 U/L (13-56); Albumin, Serum 3.5 g/dL (3.2-5.0); Alkaline Phosphatase 50 U/L (45-117); Anion Gap 4 (5-15); BUN 13 mg/dL (7-18); BUN/Creat Ratio 12.7 RATIO (10-20); Calcium,Total 9.3 mg/dL (8.5-10.1); Chloride 110 mmol/L (98-107); Creatinine, Serum 1.02 mg/dL (0.55-1.02); EST Glomerular Filtration Rate 62 mL/min (>60); Est Glom Filt Rate - Afr Amer 75 mL/min (>60); Estimated Creatinine Clearance 58.47 ml/min; Globulin 3.5 g/dL (2.2-4.2); Glucose 109 mg/dL (74-106); Lipase 34 U/L (13-75); Potassium 3.9 mmol/L (3.5-5.1); Sodium Level 140 mmol/L (136-145)
[2023-10-02 03:06] VITALS: BP 128/90; PULSE 63; RESP 16; TEMP 36.4; O2SAT 99
== END 2023-10-02 03:07 | disposition home or self-care (01) ==
PROVIDERS: Emergency Provider Emergency Medicine; PCP Family Medicine; Visit Provider Emergency Medicine
DX: R11.2 Nausea with vomiting, unspecified (principal); T38.3X5A Adverse effect of insulin and oral hypoglycemic [antidiabetic] drugs, initial encounter; R35.0 Frequency of micturition; R10.9 Unspecified abdominal pain; Z79.85 Long-term (current) use of injectable non-insulin antidiabetic drugs; Z79.890 Hormone replacement therapy; Z79.899 Other long term (current) drug therapy
CPT/HCPCS: 80053; 81001; 83690; 85025; 96361; 96374; 99283; A4216; J2405

== ENCOUNTER → 2023-11-13 | Outpatient (CLI) | payer BC, SELFPAY ==
[2023-11-13 14:11] LABS: Free T3 1.5 pg/mL (2.18-3.98); T4 Free Direct 0.75 ng/dL (0.76-1.46)
[2023-11-13 14:14] LABS: Vitamin D,25 Hydroxy 42.2 ng/mL
[2023-11-13 14:33] LABS: Progesterone Level < 0.21 ng/mL (See Comment)
[2023-11-15 04:07] LABS: Thyroid Peroxidase AB 129 IU/mL (0-34)
== END | disposition home or self-care (01) ==
PROVIDERS: PCP Family Medicine
DX: Z00.00 Encounter for general adult medical examination without abnormal findings (principal); E55.9 Vitamin D deficiency, unspecified; R87.1 Abnormal level of hormones in specimens from female genital organs; E06.3 Autoimmune thyroiditis; R89.1 Abnormal level of hormones in specimens from other organs, systems and tissues
CPT/HCPCS: 36415; 82306; 82670; 84144; 84403; 84439; 84443; 84481; 86376

== ENCOUNTER → 2024-03-14 | Outpatient (CLI) | payer BC, SELFPAY ==
[2024-03-14 10:36] LABS: Thyroid Stim Hormone (TSH) 1.05 uIU/mL (0.358-3.74)
== END | disposition home or self-care (01) ==
LOC: MFPLAB 09:32
PROVIDERS: PCP Family Medicine; Visit Provider Family Medicine
DX: E03.9 Hypothyroidism, unspecified (principal)
CPT/HCPCS: 36415; 84443

== ENCOUNTER 2024-04-20 08:20 | Emergency (ER) | payer BC, SELFPAY ==
[2024-04-20 08:21] VITALS: BP 129/112; PULSE 84; RESP 16; TEMP 35.8; O2SAT 100; BMI 22.3
--- NOTE | 2024-04-20 08:34 | ED.VIS.GI ---
HPI HPI - GI History of Present Illness Chief Complaint: Abd Pain Informant: patient Abdominal Pain/Flank Pain Onset: Today Context: Sudden Onset Timing: Continuous and Waxes and wanes Quality: Cramping and Sharp Location: LUQ, RLQ and LLQ Worsened by: Nothing Relieved by: Nothing Nausea/Vomiting/Emesis GI Symptom: Positive for Nausea; Negative for Vomiting Diarrhea/Melena/Hematochezia GI Symptom: Negative for Diarrhea, Melena or Hematochezia Associated Symptoms Associated Symptoms: Negative for Dysuria, Frequency or Hematuria Narrative Narrative: Patient presents with left-sided abdominal pain that began this morning. Patient states it began rather suddenly. Patient states it has been constant but waxes and wanes. Patient describes it as cramping and sharp. Patient states it is mainly over the left side of her abdomen but radiates to the lower abdomen on the right. Patient states nothing makes it better nothing makes it worse. Patient admits to some nausea but denies any vomiting. Patient states he did have a loose stool today but denies any melena or hematochezia. Patient denies any urinary complaints. [facility] Medical History Family history of colon cancer in father Thyroid disease Heart murmur Kidney stones IBS (irritable bowel syndrome) Chronic headaches Anxiety Home Medications ?Medication ?Instructions ?Recorded ?Last Taken ?Type levothyroxine 150 mcg tablet 150 mcg PO .COMPLEX pt may have 12/04/20 Unknown History (Synthroid) dose change after monitoring labs losartan 50 mg tablet 50 mg PO DAILY 10/05/22 Unknown History hydroxyzine pamoate 25 mg capsule 25 mg PO Q6H PRN anxiety #120 caps 01/19/23 Unknown Rx (Vistaril) progesterone hrt cream 2 - 4 click topical DAILY 10/02/23 Unknown History promethazine 25 mg tablet 25 mg PO Q12H PRN nausea 10/02/23 Unknown History fremanezumab-vfrm 225 mg/1.5 mL 225 mg (1.5 mL) subcut QMONTH #1.5 11/15/23 Unknown Rx subcutaneous syringe (Ajovy mL Syringe) naratriptan 2.5 mg tablet 2.5 mg PO .COMPLEX migraine 11/15/23 Unknown Rx headache #9 tabs ondansetron HCl 4 mg tablet 4 mg PO TID PRN nausea and 11/15/23 Unknown Rx vomiting #30 tabs Allergy/AdvReac Type Severity Reaction Status Date / Time acetaminophen (From Percocet) Allergy Intermediate Rash Verified 04/20/24 08:22 adhesive tape Allergy Intermediate Itching Verified 04/20/24 08:22 oxycodone HCl (From Percocet) Allergy Intermediate Rash Verified 04/20/24 08:22 bupropion (From Wellbutrin) AdvReac Severe Elevated BP Verified 04/20/24 08:22 Sulfa (Sulfonamide AdvReac Severe Nausea/Vom/ Verified 04/20/24 08:22 Antibiotics) Diarrhea Family History Unknown Thyroid disorder Kidney stones Father Colon cancer Surgical History ACDF C5-7 H/O: hysterectomy H/O: anterior cervical discectomy Social History Smoking Status: Never smoker second hand exposure: No alcohol intake: never substance use type: does not use 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 Constitutional Constitutional ED: Denies chills or fever(s) Eyes Eyes: Denies blurry vision or change in vision ENT ENT ED: Denies rhinorrhea or sore throat Cardiovascular Cardiovascular: Denies chest pain or palpitations Respiratory/Chest Respiratory/Chest: Denies cough or dyspnea Gastrointestinal Gastrointestinal: Reports abdominal pain and nausea; Denies diarrhea, melena or vomiting Genitourinary Genitourinary ED: Denies dysuria or hematuria Musculoskeletal Musculoskeletal: Denies back pain or neck pain Integumentary Denies abscess or rash Neurologic Neurologic: Denies headache(s) or weakness Allergic/Immunologic Allergic/Immunologic ED: Denies mouth swelling or urticaria EXAM Physical Exam Const Vital Signs: 04/20/24 08:21 04/20/24 10:20 Temperature 96.4 F L Temperature Source Temporal Pulse Rate 84 74 Respiratory Rate 16 16 Blood Pressure 129/112 H 128/84 H Blood Pressure Mean 117 98 Pulse Ox 100 100 Oxygen Delivery Method Room Air Room Air Positive well nourished and well developed General Appearance ED: well developed and NAD HEENT Reports moist mucous membranes Neck supple and no JVD Resp normal respiratory effort and clear to auscultation bilaterally Cardio regular rate and regular rhythm GI non-distended Palpation: soft and tender LLQ and LUQ; Negative for guarding or rebound tenderness present Extremity full ROM General Extremety ED: Negative for edema or tenderness General Extremity: Negative for edema Neuro CN's II-XII intact bilaterally, moves all extremities and no sensory deficits noted Sensorium / Orientation: alert Motor Exam: strength 5/5 throughout Psych mental status grossly normal MDM MDM MDM Narrative Medical decision making narrative: Differential diagnosis includes ureteral calculus, constipation, diverticulitis, urinary tract infection, pyelonephritis, colitis, gastroenteritis, and pancreatitis. CBC will be obtained to assess for leukocytosis and anemia. Comprehensive metabolic profile will be obtained to assess for hepatic function, renal function, and electrolyte abnormality. Lipase will be obtained to assess for pancreatitis. Urinalysis will be obtained to assess for urinary tract infection and hematuria. CT scan of the abdomen pelvis will be obtained to assess for diverticulitis, pancreatitis, and ureteral calculus. Lab Data Attestation: I reviewed the patient's lab results. Lab results narrative: CBC was reviewed and was within normal limits. Comprehensive metabolic profile was reviewed and was within normal limits. Lipase was reviewed and was normal. Urinalysis was reviewed. There is no evidence of urinary tract infection or hematuria. Labs: Laboratory Results - last 24 hr 04/20/24 04/20/24 08:50 09:15 WBC 6.8 RBC 4.67 Hgb 14.3 Hct 41.0 MCV 87.8 MCH 30.6 MCHC 34.9 RDW Std Deviation 39.5 RDW Coeff of Azalea 12.4 Plt Count 196 MPV 10.1 Immature Gran % (Auto) 0.300 Neut % (Auto) 67.2 Lymph % (Auto) 23.6 Cocke % (Auto) 6.4 Eos % (Auto) 2.1 Baso % (Auto) 0.4 Absolute Neuts (auto) 4.6 Absolute Lymphs (auto) 1.60 Nucleated RBC % 0 Sodium 139 Potassium 3.8 Chloride 109 H Carbon Dioxide 25.0 Anion Gap 5 BUN 8 Creatinine 1.00 Estim Creat Clear Calc 52.48 Est GFR (MDRD) Af Amer 76 Est GFR (MDRD) Non-Af 63 BUN/Creatinine Ratio 8.0 L Glucose 101 Calcium 9.8 Total Bilirubin 0.70 AST 15 ALT 15 Alkaline Phosphatase 68 Total Protein 6.9 Albumin 3.4 Globulin 3.5 Albumin/Globulin Ratio 1.0 Lipase 30 Urine Color Yellow Urine Clarity Cloudy Urine pH 8.0 Ur Specific Ranger 1.015 Urine Protein Negative Urine Glucose (UA) Normal Urine Ketones Negative Urine Occult Blood 10 H Urine Nitrite Negative Urine Bilirubin Negative Urine Urobilinogen Normal Ur Leukocyte Esterase Negative Urine RBC 0-5 SEEN Urine WBC 0 SEEN Ur Squamous Epith Cells 0-5 SEEN Amorphous Sediment 2+ Urine Bacteria 3+ Urine Mucus 0 SEEN Radiography Diagnostic Testing: Clinical Impression(s) from Imaging Studies Abdomen/Pelvis CT 04/20/24 08:39 IMPRESSION: No focal acute inflammatory process. Fecal retention concerning for constipation. Electronically Signed: Gui Bose MD at 10:33 EDT , CT scan of the abdomen pelvis was obtained. There is no evidence of ureteral calculus. There is no bowel obstruction. There is no free air or free fluid. There is no acute process noted. There is fecal retention noted throughout the colon. This was interpreted by the radiologist and was also independently reviewed by myself. Treatment and Re-Evaluation :: Patient was given IV fluids, Zofran, and Bentyl. Patient was feeling better on reevaluation. Patient was advised of her findings. Patient was instructed to drink plenty of fluids. Patient was instructed to use [id number]-yaj-ltykcyt laxatives as needed for constipation. Patient was instructed to follow-up with her primary care physician in 5 to 7 days. Patient was instructed to return if worse in any way. Patient understood and was agreeable with the plan. All questions were answered. Discharge Plan Triage Chief Complaint: Abd Pain ED Provider: Roel Herrera Dx/Rx/DC Orders Clinical Impression: Abdominal pain, Constipation Instructions: ED Abdominal Pain Unkn Cause Fem, ED Constipation (Adult) Prescriptions: No Action levothyroxine [Synthroid] 150 mcg tablet 150 mcg PO .COMPLEX Rx Instructions: Take 1 tablet by mouth Monday through Monday losartan 50 mg tablet 50 mg PO DAILY hydroxyzine pamoate [Vistaril] 25 mg capsule 25 mg PO Q6H PRN (Reason: anxiety) Qty: 120 12RF ondansetron HCl 4 mg tablet 4 mg PO TID PRN (Reason: nausea and vomiting) Qty: 30 11RF Ajovy Syringe 225 mg/1.5 mL syringe 225 mg subcut QMONTH Qty: 1.5 11RF naratriptan 2.5 mg tablet 2.5 mg PO .COMPLEX Qty: 9 11RF Rx Instructions: Take 1 tablet orally every 4 hours as needed for headache up to 2 tablets daily. promethazine 25 mg tablet 25 mg PO Q12H PRN (Reason: nausea) Patient Comments: take 1 tablet 2 times a day by mouth as instructed as needed for nausea progesterone hrt cream 2 - 4 click topical DAILY Rx Instructions: 200mg/gm cream Primary Care Provider: Camilo Pérez Referrals: Camilo Pérez MD [Primary Care Provider] - 5-7 Days Print Language: Nigerian Disposition Disposition: Home, Self Care
--- NOTE | 2024-04-20 08:39 | CT_ITS ---
INDICATION: Pain EXAMINATION: CT ABDOMEN AND PELVIS WITHOUT CONTRAST - CT Abdomen And Pelvis W/O Contrast Injection TECHNIQUE: Helically acquired images were obtained of the abdomen and pelvis without oral or IV contrast. The protocol utilizes one or more of the following dose reduction techniques: automated exposure control, adjustment of mA and/or kV according to patient size,and/or use of iterative reconstruction technique. IV Contrast dosage and agent: None. Oral contrast: None. RADIATION DOSAGE (If Supplied By Facility): CTDIvol = ( 6.04 ) mGy, DLP = ( 271.80 ) mGycm COMPARISON: Prior study dated: 06/12/2019 FINDINGS: LOWER CHEST: Lung bases are clear. No cardiomegaly or pericardial effusion. LIVER: Homogeneous. No focal mass. GALLBLADDER AND BILIARY TREE: No calcified gallstones. No gallbladder distension or wall edema. No intra- or extrahepatic biliary ductal dilation. PANCREAS: No focal cystic or solid mass. SPLEEN: Normal size without focal cystic or solid mass. ADRENAL GLANDS: No nodules. KIDNEYS AND URETERS: Stable simple cyst in the left kidney unchanged for which no further follow-up exam is needed. No hydronephrosis. PERITONEUM: No ascites or free air. No other fluid collection. BOWEL: No evidence of acute appendicitis. No stomach or bowel distension. Fecal retention throughout the colon concerning for constipation. LYMPH NODES: No enlarged mesenteric or retroperitoneal lymph nodes. VESSELS: Aorta is non-dilated. URINARY BLADDER: Unremarkable. REPRODUCTIVE ORGANS: No pelvic masses. ABDOMINAL WALL: Small umbilical hernia containing fat. BONES: No lytic or blastic abnormality. CT/Abdomen/Pelvis without Cont IMPRESSION: No focal acute inflammatory process. Fecal retention concerning for constipation. Electronically Signed: Gui Bose MD at 10:33 EDT ,
[2024-04-20] MEDS: 0.9% Normal Saline (1000mL) 1,000 ML 999 ML IV (08:53)
[2024-04-20] MEDS: Dicyclomine 20 MG/2 ML Vial IM (08:53)
[2024-04-20] MEDS: Ondansetron 4 MG/2 ML Vial IV (08:53)
[2024-04-20 09:00] LABS: Absolute Neutrophil Count 4.6 X10^3/uL (2.0-7.7); Basophil# 0.03 X10^3/uL; Basophil% 0.4 % (0-1); Eosinophil# 0.14 X10^3/uL; Eosinophils% 2.1 % (0-5); Hemoglobin 14.3 g/dL (12.0-15.0); Lymphocyte % 23.6 % (19-41); Mean Corp Hgb Conc 34.9 g/dL (32-36); Mean Corpuscular Hgb 30.6 pg (27.0-32.0); Mean Corpuscular Volume 87.8 fL (81-99); Mean Platelet Vol. 10.1 fl (6.2-12.0); Monocyte# 0.43 X10^3/uL; Monocyte% 6.4 % (0-10); NRBC Flagged by Analyzer 0 % (0-5); Neutrophil # 4.55 X10^3/uL (2.7-7.7); Neutrophil % 67.2 % (47-70); Platelet Count 196 K/mm3 (150-450); RBC Distribution Width CV 12.4 % (11.6-14.6); RBC Distribution Width SD 39.5 fl (35.1-43.9); Red Blood Count 4.67 M/mm3 (4.2-5.4); White Blood Count 6.8 K/mm3 (4.4-11.0)
[2024-04-20 09:15] LABS: AST(SGOT) 15 U/L (15-37); Alanine Aminotransfer ALT/SGPT 15 U/L (13-56); Albumin, Serum 3.4 g/dL (3.2-5.0); Alkaline Phosphatase 68 U/L (45-117); Anion Gap 5 (5-15); BUN 8 mg/dL (7-18); Calcium,Total 9.8 mg/dL (8.5-10.1); Chloride 109 mmol/L (98-107); EST Glomerular Filtration Rate 63 mL/min (>60); Est Glom Filt Rate - Afr Amer 76 mL/min (>60); Estimated Creatinine Clearance 52.48 ml/min; Globulin 3.5 g/dL (2.2-4.2); Glucose 101 mg/dL (74-106); Lipase 30 U/L (13-75); Potassium 3.8 mmol/L (3.5-5.1); Protein, Total 6.9 g/dL (6.4-8.2); Sodium Level 139 mmol/L (136-145)
[2024-04-20 09:18] LABS: Mucous, Urine 0 SEEN /hpf (<or=2+); White Blood Cells 0 SEEN /hpf (0-5)
[2024-04-20 09:20] LABS: Color, Urine Yellow (Yellow); Glucose, Dipstick Normal (Normal); Ketone-Dipstick Negative (Negative); Leukocyte Esterase-Dipstick Negative /ul (Negative); Nitrite-Dipstick Negative (Negative); Occult Blood-Urine 10 /ul (Negative); Protein-Dipstick Negative (Negative); Specific Gravity, Urine 1.015 (1.002-1.030); Urine Bilirubin Dipstick Negative (Negative); Urine Clarity Cloudy (Clear); Urine Urobilinogen Normal (Normal)
[2024-04-20 09:34] LABS: Amorphous Sediment 2+; Squamous Epithelial Cells - UA 0-5 SEEN /hpf (5-10)
[2024-04-20 09:35] LABS: Bacteria 3+ /hpf (None Seen)
[2024-04-20 09:36] LABS: Red Blood Cells-Urine 0-5 SEEN /hpf (0-5)
[2024-04-20 10:20] VITALS: BP 128/84; PULSE 74; RESP 16; O2SAT 100
== END 2024-04-20 11:13 | disposition home or self-care (01) ==
PROVIDERS: Emergency Provider Emergency Medicine; PCP Family Medicine; Visit Provider Emergency Medicine
DX: R10.12 Left upper quadrant pain (principal); K59.00 Constipation, unspecified; R10.31 Right lower quadrant pain; R10.32 Left lower quadrant pain; K58.9 Irritable bowel syndrome, unspecified; E07.9 Disorder of thyroid, unspecified; Z79.890 Hormone replacement therapy; Z79.899 Other long term (current) drug therapy; Z80.0 Family history of malignant neoplasm of digestive organs
CPT/HCPCS: 74176; 80053; 81001; 83690; 85025; 96361; 96372; 96374; 99283; J7030; A4216; J2405

== ENCOUNTER → 2024-08-23 | Outpatient (CLI) | payer BC, SELFPAY ==
--- NOTE | 2024-08-23 09:23 | RAD_ITS ---
INDICATION: Neck pain, with neuropathy EXAMINATION/TECHNIQUE: X-RAY - XR Spine Cervical 4 or 5 Views COMPARISON: March 13, 2018 FINDINGS: VERTEBRAE: There is a stable anterior fusion of C5-C7. Preserved vertebral body height. No fracture. No spondylolisthesis. Preservation of the normal cervical lordosis. No significant facet arthropathy. The neural foramina are patent. DISCS: Disc spaces are maintained. NECK SOFT TISSUES: No prevertebral soft tissue widening. LUNG APICES: Clear. RAD/Cerv Spine 4 or 5 Views IMPRESSION: Stable examination with no evidence of acute fracture or spondylolisthesis. Electronically Signed: Brii Alvarado MD at 16:43 EST ,
== END | disposition home or self-care (01) ==
LOC: MTRAD 09:22
PROVIDERS: PCP Family Medicine; Referring Provider Family Medicine; Visit Provider Family Medicine
DX: M47.812 Spondylosis without myelopathy or radiculopathy, cervical region (principal)
CPT/HCPCS: 72050

== ENCOUNTER 2024-09-09 08:57 | Outpatient (RCR) | payer BC, SELFPAY ==
--- NOTE | 2024-09-10 16:02 | HP.PTEVAL_ITS ---
Patient's Visit Information Visit Information Visit Information: PATRIC ROTH is a 49 year old F referred to Physical Therapy by CLAUDINE Armenta with a diagnosis of CERVICAL RADICULOPATHY. Date of Evaluation: 09/09/24 Physical Therapist: Hawa Peter PT, Cert MDT Visit Plan Frequency: 2-3x /Week Duration: 4-6 Weeks Plan: Scapular Strengthening and B Pec/UT/Levator/Scalene Stretching to help reduce stress on Cervical Spine with Daily Activities. US at 1.3 W/CM2 100% to R Neck Musculature in Sitting. Moist Heat to Neck as needed. Instruction in Proper Posture Control, Ergonomics with ADL's and Appropriate Activity Modifications. HEP Instructions. Consider Manual and/or Mechanical Traction. 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 Disability: NO Present symptoms: SHERYL NECK PAIN L>R. Present since: APPROX JUN 2024 Getting Better, Getting Worse or Staying the Same: STAYING THE SAME Pain Scale: Worst - 8/10 Least - 1/10 Currently: 10 Commenced as a result of: NO APPARENT REASON Symptoms at onset: SAME CURRENT Worse: LIFTING, SLEEPING/LYING DOWN, L SDLY, CARRYING GRANDCHILDREN. Better: BABY TYLONOL/ASPIRIN, TRAVEL NECK PILLOW AT NIGHT. Disturbed sleep: NIGHT Previous history/Previous treatment: ACDF C5-C7 2014 DR. Tim VALLEJO. This episode: M. RELAXER - NE Dizziness: NO Tinnitus: NO Nausea: NO Shortness of Breath: NO Difficulty Swallowing: NO Gait: NORMAL Accidents: NO Unexplained weight loss: NO Imaging: SEE RECENT CERVICAL X-RAY RESULTS [facility] EMR. MRI PENDING NEXT MONTH. PMH/Recent major surgery: MIGRAINES AND TENSION HEADACHES - TREATED WITH PRESCRIPTION INJECTIONS ONCE A MONTH PRESCRIBED BY NEUROLOGIST. Objective Objective: Sitting Posture/Standing Posture: FH. RSH'S. NO TORTICOLLIS. Other Observations: INDEP GAIT AND TRANSFERS Sensory deficit: SHERYL UE LIGHT TOUCH SENSATION GROSSLY INTACT AND SYMMETRICAL ROM deficit: SHERYL UE ROM WFL Motor deficit: SHERYL UE STRENGTH GROSSLY 5/5 EXCEPT SHLD'S 4/5 Reflexes: UNABLE TO ELICIT SHERYL UE DTR'S. Dural Signs: NEGATIVE SHERYL UE'S. Cervical Mvmt Loss: Flex: MOD - INCREASED - NW Pro: NIL Ext: MOD - INCREASES - NW Ret: JUSTYNA - INCREASES - NW RSB: MOD TO JUSTYNA - INCREASES - W LSB: MOD - INCREASES - NW R Rot: MOD - INCREASES - NW L Rot: MOD - INCREASES - NW Postural strength: FAIR Palpation: INCREASED MUSCLE TONE SHERYL POSTERIOR CERVICAL AND PERISCAPULAR MUSCULATURE WITH MULTIPLE TRIGGER POINTS. Other: Seated Cervical Distraction Testing - NE. Balance/Special Test Scores Oswestry Neck Score: 19 Goals Goal 1:: DECREASE C/O NECK PAIN BY AT LEAST 75% TO EASE ADL AND WORK FUNCTION Goal Time Frame: 4-6 Weeks Goal 2:: IMPROVE PERSONAL CARE, LIFTING, READING, SLEEP, WORK, DRIVING AND RECREATIONAL FUNCTION WITH AT LEAST 5 POINT NECK OSWESTRY SCORE INCREASE. Goal Time Frame: 4-6 Weeks Goal 3:: INSTRUCT IN PROPHYLAXIS Goal Time Frame: 4-6 Weeks Rehabilitation Potential Physical Therapy Diagnosis: CERVICAL AND POSTURAL STIFFNESS AND WEAKNESS WITH C/O CONSTANT NECK PAIN. Rehabilitation Potential: Fair Anticipated Interventions Patient/Client Instruction: Educate patient on: Condition, Plan of Care and Risk Factors For the Purpose of:: To improve self management Therapeutic Exercise to Include: Strength training, Body mechanics, Postural training, Flexibilty training, Neuromotor development, Relaxation training and Scapular Strength/Stabilization For the Purpose of:: To decrease pain, To increase ROM, To improve muscle performance and motor function, To increase tolerance to activity/condition/position, To improve ability of physical actions for home/com munity/work/leisure, To decrease soft tissue restriction, To increase flexibility/ROM and To improve self management Manual Therapy Techniques to Include: Trigger point massage, Mobilization, Functional dry needling and Soft tissue mobilization For the Purpose of:: To decrease pain, To improve nutrient delivery to tissue, To decrease soft tissue restriction and To increase flexibility/ROM Thermo therapy (hot pack): Yes Ultrasound (thermal/non thermal): Yes Intermittent cervical traction: Yes For the Purpose of:: To decrease pain and To improve nutrient delivery to tissue Text: Thank you for the opportunity to evaluate your patient. For Medicare and Medicare HMO plans, please review the plan of care and approve it. It will need to be FAXED BACK to us at [phone] for Medicare purposes. For Medicare only, by signing this I certify the plan of care. Please let me know if there are questions or concerns regarding this plan of care. Physician Signature: Date:
== END 2024-09-09 19:00 | disposition home or self-care (01) ==
LOC: PT 08:57
PROVIDERS: PCP Family Medicine; Referring Provider Student in an Organized Health Care Education/Training Program; Visit Provider Student in an Organized Health Care Education/Training Program
DX: M54.12 Radiculopathy, cervical region (principal)
CPT/HCPCS: 97162; 97530